=== PATIENT | male | born 1955 | race Caucasian/White ===

== ENCOUNTER 2016-12-23 06:34 | Observation (INO) | payer OTHER ==
[~2016-12-23] VITALS: Ht 181.6 cm; Wt 93.0 kg
--- NOTE | 2016-12-23 08:16 | ED NURSING NOTES ---
Clinical Report - Nurses [facility] [address] [place] [address] 12/23/2016 6:35 Patient: JAEL ZAZUETA TRIAGE Triage time 06:37 Dec 23 2016. Acuity: LEVEL 2. Chief Complaint: CHEST PAIN and PALPITATIONS. 06:44 12/23/16. RALF COMA SCORE: Ralf Coma Scale: 15- eyes open spontaneously (4); best verbal response- oriented x 4 (5); best motor response- obeys commands (6). --06:44 Dora Elliott R.N. 06:39 12/23/16. BP: 173/118. HR: 197. RR: 20. O2 saturation: 100%. Temp: 98.7 F. Pain level now: 0/10. --06:44 Dora Elliott R.N. Weight: 95.2 kg stated. Height/Length: 71 inches Per Patient. BMI: 29.3. --06:36 Dora Elliott R.N. Medications Effexor XR Oral. --06:40 Dora Elliott R.N. PROzac Oral. --06:40 Dora Elliott R.N. Medication/allergy information source: the patient. --06:44 Dora Elliott R.N. History Arrived by private vehicle. Historian: patient. Accompanied by family. This started just prior to arrival. ( States was walking up the steps at work (05:30) this am , he got to the top and felt like his heart was "jumping and racing" He had some dyspnea with this. No other symptoms.). ( recent headaches). No fever, weakness, cough, difficulty breathing or skin rash. Denies muscle aches. Treatment MENTAL RETARDATION NURSE: None. SOCIAL HX: Never smoker. Regular alcohol use; consumes four beers a day. No drug use. No infectious disease exposure. ABUSE ASSESSMENT: No report of abuse. SELF HARM ASSESSMENT: A self harm assessment was performed. The patient answered "no" to the question "Have you recently felt down, depressed, or hopeless?", "Have you noticed less interest or pleasure in doing things?", "Do you have thoughts of harming or killing yourself?", "Are you here because you tried to hurt yourself?", "Have you ever tried to hurt yourself before today?", "Have you recently had thoughts about harming or killing others?" and "Do you have any dangerous items in your possession?". NUTRITIONAL RISK ASSESSMENT: The nutritional risk assessment revealed no deficiencies. FUNCTIONAL ASSESSMENT: Functional assessment: no impairments noted. LEARNING NEEDS ASSESSMENT: The learning needs assessment revealed no barriers. SKIN INTEGRITY ASSESSMENT: Skin integrity risk assessment completed. No skin integrity risk identified. --06:44 Dora Elliott R.N. PROBLEMS: Depression. --06:40 Dora Elliott R.N. ADDITIONAL SURGERIES: Tonsillectomy. --06:40 Dora Elliott R.N. Interventions ID band on patient. --06:44 Dora Elliott R.N. PHYSICAL ASSESSMENT 06:42 12/23/16. Ambulatory to room. GENERAL / NEURO / PSYCH: Alert. Oriented X 4. Appears anxious. HEENT: Pupils equal, round and reactive to light. No facial asymmetry noted. Mucous membranes are pink. RESPIRATORY: Breath sounds within normal limits. GI / : Abdomen soft. SKIN: Skin intact. Skin is warm and dry. Normal skin turgor. --06:47 Dora Elliott R.N. NURSING PROGRESS NOTES 06:37 12/23/16. Cardiac rhythm: atrial fibrillation with rapid ventricular response. The initial plan of care for this patient includes an assessment with efforts to address the patient's anxiety. This plan of care was discussed with the patient and family. Oxygen administered at 2 liters. vehicle monitor technician, pulse oximeter and NIBP monitor placed on patient; hospital monitor- Lead II; monitor alarms on. Patient gowned. Patient identifiers checked. Call light placed in reach. Side rails up x 2. Bed placed in lowest position. Patient ready for evaluation. --06:47 Dora Elliott R.NHyacinth 06:42 12/23/2016 Site #1 started via IV in the left antecubital space with an 18g angiocath, with aseptic technique and good blood return; one attempt. Blood drawn: rainbow set. Labeled in the presence of the patient and sent to the lab. Saline lock flushed with 10 mL saline. --06:47 Dora Elliott R.N. 06:48 12/23/16. BP: 148/89. HR: 190. RR: 20. O2 saturation: 100%. Pain level now 0/10. --06:55 Dora Elliott R.N. 06:48 12/23/16. Cardiac rhythm: atrial fibrillation with rapid ventricular response. --06:55 Dora Elliott R.N. 06:50 12/23/2016 Site #2 started via IV in the left forearm with an 18g angiocath, with aseptic technique and good blood return; one attempt. Blood drawn: rainbow set. Labeled in the presence of the patient and sent to the lab. Saline lock flushed with 10 mL saline. --06:54 Dora Elliott R.N. 06:56 12/23/16. BP: 137/83. HR: 115. RR: 18. O2 saturation: 100%. Pain level now 0/10. --06:56 Dora Elliott R.N. 06:50 12/23/2016 Cardizem IVP 20 mg given over 2 minute(s) via site #1. Allergies verified and confirmed 5 rights. IV patency established. IV site checked: no pain, redness, or swelling. IV flushed thoroughly pre- and post-medication administration. IVP given by RN. --07:03 Dora Elliott R.NHyacinth 06:56 12/23/16. Cardiac rhythm: sinus tachycardia. --06:56 Dora Elliott R.NHyacinth 07:02 12/23/2016 Started bag #1 1000 mL IV Fluids IV NS (Saline); at 125 mL/hr over 8 hour(s) via site #2 via IV pump. Allergies verified and confirmed 5 rights. IV patency established. IV site checked: no pain, redness, or swelling. IV flushed thoroughly pre- and post-medication administration. --07:02 Dora Elliott R.N. EKG time: (0642). EKG was ordered, performed by a tech and shown to the ED physician. --07:06 Dane Kunz, ER Call Center Representative EKG time: (0656). EKG was ordered, performed by a tech and shown to the ED physician. POST MEDS. --07:07 Dane Kunz, ER Call Center Representative 07:12 12/23/2016 Diltiazem PO 30 mg given. Allergies verified and confirmed 5 rights. --07:13 Kayla Gaxiola R.N. 07:17 12/23/16. Care transferred and report received (Dora). ( Patient has no pain at this time and says he doesn't need anything at this time). --07:17 Kayla Gaxiola R.N. 07:15 12/23/16. BP: 148/97. HR: 101. RR: 18. O2 saturation: 99% on room air. Temp: 98.6 F (oral). Pain level now: 0/10. --07:17 Kayla Gaxiola R.N. 08:30. Patient ID band checked for patient name and birthdate: patient confirmed urine collected with return of yellow-colored clear urine; odor is normal; sample sent to lab for urinalysis and culture. Specimen labeled in the presence of the patient. --08:42 Samira Gaxiola 09:08 12/23/16. --09:08 Kayla Gaxiola R.N. 09:06 12/23/16. BP: 157/105 (regular adult cuff) taken on the right arm, while lying. HR: 88. RR: 18 (regular). O2 saturation: 100% on room air. Temp: 98.2 F (oral). Pain level now: 0/10. --09:08 Kayla Gaxiola R.N. 09:59 12/23/16. --09:59 Kayla Gaxiola R.N. 09:57 12/23/16. BP: 158/86 (regular adult cuff) taken on the right arm, while sitting. HR: 86. RR: 18 (regular). O2 saturation: 100% on room air. Temp: 97.7 F (oral). Pain level now: 0/10. --09:59 Kayla Gaxiola R.N. Locked/Released at 12/27/2016 8:56 by Kimber Fox R.N.
--- NOTE | 2016-12-23 08:16 | ED CLINICAL REPORT ---
Clinical Report - Physicians/Mid Levels [facility] [address] [place] [address] 12/23/2016 6:35 Patient: JAEL ZAZUETA Time Seen: 06:38. Arrived- By private vehicle. Historian- patient. HISTORY OF PRESENT ILLNESS Chief Complaint: PALPITATIONS. It is described as a fast heart beat and an irregular heart beat. This started just prior to arrival and is still present. Onset during exertion. History of caffeine use prior to onset. It was abrupt in onset and has been constant. The patient has had moderate, pressure-like central chest pain. No radiation. He has had mild difficulty breathing and dizziness. Similar symptoms previously: Several times. ( he has not been evaluated for that says that he experiences palpitations at different times). REVIEW OF SYSTEMS No chills, fever, sweats, calf pain or cough. No pedal edema, abdominal pain, constipation, diarrhea or nausea. No urinary problems. All systems otherwise negative, except as recorded above. PAST HISTORY PCP - Cory. Problems: Depression. Additional Surgeries: Tonsillectomy. Medications: PROzac Oral. Effexor XR Oral. Allergies: Sulfa Antibiotics. SOCIAL HISTORY Never smoker. Regular alcohol use; consumes four beers a day. No drug use. Is a local resident. He lives with spouse. Has good social support. FAMILY HISTORY Stroke in first-degree relative (father). maternal grandmother with thyroid disease. ADDITIONAL NOTES The nursing notes have been reviewed. PHYSICAL EXAM Vital Signs: 12/23/2016 06:39 BP: 173/118. HR: 197. RR: 20. O2 saturation: 100%. Temp: 98.7 F. Pain level now: 0/10. Appearance: Alert. Eyes: Pupils equal, round and reactive to light. ENT: Pharynx normal. Neck: Normal inspection. Neck supple. No JVD. CVS: Tachycardia. Respiratory: No respiratory distress. Breath sounds normal. Abdomen: Soft and nontender. Bowel sounds normal. No organomegaly. No mass. Back: Normal external inspection. No CVA tenderness. Skin: Skin warm and dry. Normal skin color. Normal skin turgor. Extremities: Extremities exhibit normal ROM. No calf tenderness. No lower extremity edema. LABS, X-RAYS, AND EKG EKG: EKG time: (06:42). Rate: 193. Irregular narrow-complex tachycardia. Possible atrial fibrillation. ST depression. Prior EKG unavailable. The study has been independently viewed by me. EKG #2: EKG time: (06:56). Normal sinus rhythm. Rate: 114. Tachycardia. Changes present when compared to prior EKG. The study has been independently viewed by me. Chest X-ray: No acute disease. The X-rays were independently viewed by me. Laboratory Tests: UA-Culture if indicated: (ARIK: 12/23/2016 07:50) ( [facility] 12/23/2016 07:57) IP Test Result Flag Units (Reference) URINE COLOR YELLOW URINE APPEARANCE CLEAR URINE GLUCOSE NEGATIVE (NEGATIVE) URINE BILIRUBIN NEGATIVE (NEGATIVE) URINE KETONE NEGATIVE (NEGATIVE) URINE SPECIFIC GRAVITY 1.010 (1.010-1.030) URINE PH 6.0 (5.0-8.0) URINE PROTEIN NEGATIVE (NEGATIVE) URINE UROBILINOGEN 0.2 EU/dL (0.2-1.0) URINE NITRITE NEGATIVE (NEGATIVE) URINE BLOOD NEGATIVE (NEGATIVE) URINE LEUK ESTERASE NEGATIVE (NEGATIVE) CBC w Diff: (ARIK: 12/23/2016 06:48) ( [facility] 12/23/2016 07:05) Final results Test Result Flag Units (Reference) WHITE BLOOD COUNT 5.7 K/uL (4.5-11.5) RED BLOOD COUNT 4.66 M/uL (4.50-5.90) HEMOGLOBIN 14.9 gm/dL (13.5-17.5) HEMATOCRIT 44.4 % (41.0-53.0) MEAN CELL VOLUME 95 fL (80-100) MEAN CORPUSCULAR HGB 32 pg (26-34) MEAN CORPUSCULAR HGB CONC 34 g/dL (31-37) RED CELL DISTRIBUTION WIDTH 13.7 % (11.6-14.8) PLATELET COUNT 242 K/uL (150-400) NEUTROPHIL % 57.4 % (50-75) LYMPH % 30.0 % (25-40) MONO % 8.7 % (3-14) EOSINOPHIL % 3.3 % (0-4) BASOPHIL % 0.6 % (0-2) PT with INR: (ARIK: 12/23/2016 06:48) ( [facility] 12/23/2016 07:22) Final results Test Result Flag Units (Reference) INR 0.9 (0.8-1.2) Low Intensity Therapy: INR 1.5-2.0 PT range 18.5-23.1Mod.Intensity Therapy: INR 2.0-3.0 PT range 23.1-31.5High Intensity Therapy: INR 2.5-3.5 PT range 27.4-35.5High Intensity Therapy 2: INR 3.0-4.0 PT range 31.5-39.3 APTT 32 SECONDS (24-34) D-DIMER QUANTITATIVE 0.30 ug/mLFEU (0.27-0.52) The primary value of this quantitative assay relates toits negative predictive value (i.e. exclusion) of pulmonaryembolism/deep vein thrombosis/DIC.Elevated levels of d-dimer may also occur with:, age, cancer, inflammation, liver disease,post-op, infection, hematoma, coronary disease, peripheralarteriopathy, bleeding disorders and thrombolytic treatment.Results should be correlated with other clinical andradiological data.Testing Methodology: Latex Immunoassay BNP: (ARIK: 12/23/2016 06:48) ( [facility] 12/23/2016 07:26) Final results Test Result Flag Units (Reference) B-TYPE NATRIURETIC PEPTIDE 19.3 pg/ml (5-100) CMP: (ARIK: 12/23/2016 06:48) ( [facility] 12/23/2016 07:30) Final results Test Result Flag Units (Reference) GLUCOSE 107 mg/dL (70-110) BUN 14 mg/dL (7-18) CREATININE 0.9 mg/dL (0.6-1.3) Estimated GFR >60 mL/min Estimated GFR- >60 mL/min Note: Persistent reduction over 3 months in eGFR<60 mL/min/1.73 m2 defines CKD. Patients with eGFR values>=60 mL/min/1.73 m2 may also have CKD if evidence ofpersistent proteinuria. Additional information may be foundat www.kidney.org. SODIUM 141 mmol/L (136-145) POTASSIUM 4.0 mmol/L (3.5-5.1) CHLORIDE 103 mmol/L (98-107) CARBON DIOXIDE 28 mmol/L (21-32) CALCIUM 9.5 mg/dL (8.5-10.1) TOTAL PROTEIN 8.2 g/dL (6.4-8.2) ALBUMIN 4.2 g/dL (3.3-5.0) BILIRUBIN, TOTAL 0.3 mg/dL (0.0-1.0) ALKALINE PHOSPHATASE 81 U/L (46-116) AST (SGOT) 17 U/L (15-37) ALT (SGPT) 36 U/L (12-78) LIPASE 187 U/L (73-393) AMYLASE 73 U/L (25-115) CPK 98 U/L (24-260) TROPONIN I <0.05 ng/mL (0.00-1.5) TROPONIN REFERENCE RANGE:<0.1 NEGATIVE0.1-1.5 INDETERMINANT>1.5 POSITIVE THYROID STIMULATING HORMONE 2.230 uIU/mL (0.30-3.74) . PROGRESS AND PROCEDURES Course of Care: Patient is stable. Discussed case with patient's primary care provider, (Cory). Reviewed test results and need for additional work-up. Agreed upon treatment plan, need for patient follow-up and decision to place in observation. Health care provider will see patient in hospital. Patient/family counseled. Old medical records ordered. Old records unavailable. Disposition orders written (in [employer]). Disposition: Admitted. Observation. CLINICAL IMPRESSION Chest pain. supraventricular tachycardia. (Electronically signed by Chalo Benjamin MD 12/23/2016 9:28)
--- NOTE | 2016-12-23 08:16 | ED ORDER SUMMARY ---
..... Patient: JAEL ZAZUETA OrderSheet [facility] VisitID: [id number] [address] [place], [place] [id number] 61y, M Registration Date/Time: 12/23/2016 ORDER SHEET Weight: 95.2 kg (stated) Allergies: Sulfa Antibiotics GENERAL ORDERS: Chest 1V Urgent (06:55 12/23/2016 Mary VALDEZ) (Ack 6:59 CHagerty ER [employer]) (7:01 [employer]ty [employer]) Rn Admissions (Continuous) (06:55 12/23/2016 Mary VALDEZ) (6:58 CHagjorge [employer]) CBC w Diff Urgent (06:56 12/23/2016 Mary VALDEZ) (6:58 CHagjorge [employer]) CMP Urgent (06:56 12/23/2016 Mary VALDEZ) (6:58 CHagjorge [employer]) PT with INR Urgent (06:56 12/23/2016 Mary VALDEZ) (6:58 CHagjorge [employer]) PTT Urgent (06:56 12/23/2016 Mary VALDEZ) (6:58 CHagjorge [employer]) Amylase Urgent (06:56 12/23/2016 Mary VALDEZ) (6:58 CHagjorge [employer]) Lipase Urgent (06:56 12/23/2016 Mary VALDEZ) (6:58 CHagjorge [employer]) CPK Urgent (06:56 12/23/2016 Mary VALDEZ) (6:58 CHagjorge [employer]) Troponin-I Urgent (06:56 12/23/2016 Mary VALDEZ) (6:58 CHagjorge [employer]) TSH Urgent (06:56 12/23/2016 Mary VALDEZ) (6:58 CHagjorge [employer]) BNP Urgent (06:56 12/23/2016 Mary VALDEZ) (6:58 CHagjorge [employer]) D-Dimer Urgent (06:56 12/23/2016 Mary VALDEZ) (6:58 CHagjorge [employer]) UA-Culture if indicated Urgent (06:56 12/23/2016 Mary VALDEZ) (Ack 6:59 CHagjorge [employer]) (7:51 ANGELAanders R.N.) Oxygen (2 L/min) (NC) (06:56 12/23/2016 Mary VALDEZ) (6:58 CHagerty [employer]) Pulse oximeter (06:56 12/23/2016 Mary VALDEZ) (6:58 CHagerty [employer]) EKG - ER Stat (06:56 12/23/2016 Mary VALDEZ) (6:58 CHagerty [employer]) EKG - ER Stat (06:56 12/23/2016 Mary VALDEZ) (Cancelled: Other6:57 CHagerty [employer]) EKG - ER Repeat Stat (06:58 12/23/2016 CHagerty [employer] written order Mary VALDEZ) (6:59 CHagerty [employer]) MEDICATION ORDERS: Diltiazem PO 30 mg (Do not crush or chew, NOW) (07:08 12/23/2016 Mary VALDEZ) (7:13 ANGELAanders R.N.) IV FLUIDS: Cardizem IV 20 mg (HIGH ALERT MEDICATION, NOW) (06:54 12/23/2016 EInderjanett R.N. verbal order read back to Mary VALDEZ) (7:03 EInderbitzen R.N.) IV NS : initial bolus none -, then 125 mL/hr for 4h (NOW); Urgent (06:55 12/23/2016 Mary VALDEZ) (7:02 EInderbitzen R.N.) ORDER SHEET NOTES: [Electronically signed by Chalo Benjamin MD (09:28 12/23/2016)] [Electronically signed by Kimber Fox R.N. (08:56 12/27/2016)] [Electronically locked/signed by Kimber Fox R.N. (08:56 12/27/2016)]
--- NOTE | 2016-12-23 08:16 | ED ORDER SUMMARY ---
..... Patient: JAEL ZAZUETA OrderSheet [facility] VisitID: [id number] [address] [place], [place] [id number] 61y, M Registration Date/Time: 12/23/2016 ORDER SHEET Weight: 95.2 kg (stated) Allergies: Sulfa Antibiotics GENERAL ORDERS: Chest 1V Urgent (06:55 12/23/2016 Mary VALDEZ) (Ack 6:59 CHagerty ER Facilities Manager) (7:01 CHagerty ER Facilities Manager) Cyber Legal Advisor (Continuous) (06:55 12/23/2016 Mary VALDEZ) (6:58 CHagjorge ER Facilities Manager) CBC w Diff Urgent (06:56 12/23/2016 Mary VALDEZ) (6:58 CHagjorge ER Facilities Manager) CMP Urgent (06:56 12/23/2016 Mary VALDEZ) (6:58 CHagjorge ER Facilities Manager) PT with INR Urgent (06:56 12/23/2016 Mary VALDEZ) (6:58 CHagjorge ER Facilities Manager) PTT Urgent (06:56 12/23/2016 Mary VALDEZ) (6:58 CHagjorge ER Facilities Manager) Amylase Urgent (06:56 12/23/2016 Mary VALDEZ) (6:58 CHagjorge ER Facilities Manager) Lipase Urgent (06:56 12/23/2016 Mary VALDEZ) (6:58 CHagjorge ER Facilities Manager) CPK Urgent (06:56 12/23/2016 Mary VALDEZ) (6:58 CHagjorge ER Facilities Manager) Troponin-I Urgent (06:56 12/23/2016 Mary VALDEZ) (6:58 CHagjorge ER Facilities Manager) TSH Urgent (06:56 12/23/2016 Mary VALDEZ) (6:58 CHagjorge ER Facilities Manager) BNP Urgent (06:56 12/23/2016 Mary VALDEZ) (6:58 CHagjorge ER Facilities Manager) D-Dimer Urgent (06:56 12/23/2016 Mary VALDEZ) (6:58 CHagjorge ER Facilities Manager) UA-Culture if indicated Urgent (06:56 12/23/2016 Mary VALDEZ) (Ack 6:59 CHagjorge ER Facilities Manager) (7:51 ANGELAanders R.N.) Oxygen (2 L/min) (NC) (06:56 12/23/2016 Mary VALDEZ) (6:58 CHagerty ER Facilities Manager) Pulse oximeter (06:56 12/23/2016 Mary VALDEZ) (6:58 CHagerty ER Facilities Manager) EKG - ER Stat (06:56 12/23/2016 Mary VALDEZ) (6:58 CHagerty ER Facilities Manager) EKG - ER Stat (06:56 12/23/2016 Mary VALDEZ) (Cancelled: Other6:57 CHagerty ER Facilities Manager) EKG - ER Repeat Stat (06:58 12/23/2016 CHagerty ER Facilities Manager written order Mary VALDEZ) (6:59 CHagerty ER Facilities Manager) MEDICATION ORDERS: Diltiazem PO 30 mg (Do not crush or chew, NOW) (07:08 12/23/2016 Mary VALDEZ) (7:13 ANGELAanders R.N.) IV FLUIDS: Cardizem IV 20 mg (HIGH ALERT MEDICATION, NOW) (06:54 12/23/2016 EInderjanett R.N. verbal order read back to Mary VALDEZ) (7:03 EInderbitzen R.N.) IV NS : initial bolus none -, then 125 mL/hr for 4h (NOW); Urgent (06:55 12/23/2016 Mary VALDEZ) (7:02 EInderbitzen R.N.) ORDER SHEET NOTES: [Electronically signed by Chalo Benjamin MD (09:28 12/23/2016)] [Electronically signed by Kimber Fox R.N. (08:56 12/27/2016)] [Electronically locked/signed by Kimber Fox R.N. (08:56 12/27/2016)]
--- NOTE | 2016-12-23 08:16 | ED NURSING NOTES ---
Clinical Report - Nurses [facility] [address] [place] [address] 12/23/2016 6:35 Patient: JAEL ZAZUETA TRIAGE Triage time 06:37 Dec 23 2016. Acuity: LEVEL 2. Chief Complaint: CHEST PAIN and PALPITATIONS. 06:44 12/23/16. RALF COMA SCORE: Ralf Coma Scale: 15- eyes open spontaneously (4); best verbal response- oriented x 4 (5); best motor response- obeys commands (6). --06:44 Dora Elliott R.N. 06:39 12/23/16. BP: 173/118. HR: 197. RR: 20. O2 saturation: 100%. Temp: 98.7 F. Pain level now: 0/10. --06:44 Dora Elliott R.N. Weight: 95.2 kg stated. Height/Length: 71 inches Per Patient. BMI: 29.3. --06:36 Dora Elliott R.N. Medications Effexor XR Oral. --06:40 Dora Elliott R.N. PROzac Oral. --06:40 Dora Elliott R.N. Medication/allergy information source: the patient. --06:44 Dora Elliott R.N. History Arrived by private vehicle. Historian: patient. Accompanied by family. This started just prior to arrival. ( States was walking up the steps at work (05:30) this am , he got to the top and felt like his heart was "jumping and racing" He had some dyspnea with this. No other symptoms.). ( recent headaches). No fever, weakness, cough, difficulty breathing or skin rash. Denies muscle aches. 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 SOCIAL HX: Never smoker. Regular alcohol use; consumes four beers a day. No drug use. No infectious disease exposure. ABUSE ASSESSMENT: No report of abuse. SELF HARM ASSESSMENT: A self harm assessment was performed. The patient answered "no" to the question "Have you recently felt down, depressed, or hopeless?", "Have you noticed less interest or pleasure in doing things?", "Do you have thoughts of harming or killing yourself?", "Are you here because you tried to hurt yourself?", "Have you ever tried to hurt yourself before today?", "Have you recently had thoughts about harming or killing others?" and "Do you have any dangerous items in your possession?". NUTRITIONAL RISK ASSESSMENT: The nutritional risk assessment revealed no deficiencies. FUNCTIONAL ASSESSMENT: Functional assessment: no impairments noted. LEARNING NEEDS ASSESSMENT: The learning needs assessment revealed no barriers. SKIN INTEGRITY ASSESSMENT: Skin integrity risk assessment completed. No skin integrity risk identified. --06:44 Dora Elliott R.N. PROBLEMS: Depression. --06:40 Dora Elliott R.N. ADDITIONAL SURGERIES: Tonsillectomy. --06:40 Dora Elliott R.N. Interventions ID band on patient. --06:44 Dora Elliott R.N. PHYSICAL ASSESSMENT 06:42 12/23/16. Ambulatory to room. GENERAL / NEURO / PSYCH: Alert. Oriented X 4. Appears anxious. HEENT: Pupils equal, round and reactive to light. No facial asymmetry noted. Mucous membranes are pink. RESPIRATORY: Breath sounds within normal limits. GI / : Abdomen soft. SKIN: Skin intact. Skin is warm and dry. Normal skin turgor. --06:47 Dora Elliott R.N. NURSING PROGRESS NOTES 06:37 12/23/16. Cardiac rhythm: atrial fibrillation with rapid ventricular response. The initial plan of care for this patient includes an assessment with efforts to address the patient's anxiety. This plan of care was discussed with the patient and family. Oxygen administered at 2 liters. securities consultant, pulse oximeter and NIBP monitor placed on patient; sound assistant- Lead II; monitor alarms on. Patient gowned. Patient identifiers checked. Call light placed in reach. Side rails up x 2. Bed placed in lowest position. Patient ready for evaluation. --06:47 Dora Elliott R.NHyacinth 06:42 12/23/2016 Site #1 started via IV in the left antecubital space with an 18g angiocath, with aseptic technique and good blood return; one attempt. Blood drawn: rainbow set. Labeled in the presence of the patient and sent to the lab. Saline lock flushed with 10 mL saline. --06:47 Dora Elliott R.N. 06:48 12/23/16. BP: 148/89. HR: 190. RR: 20. O2 saturation: 100%. Pain level now 0/10. --06:55 Dora Elliott R.N. 06:48 12/23/16. Cardiac rhythm: atrial fibrillation with rapid ventricular response. --06:55 Dora Elliott R.N. 06:50 12/23/2016 Site #2 started via IV in the left forearm with an 18g angiocath, with aseptic technique and good blood return; one attempt. Blood drawn: rainbow set. Labeled in the presence of the patient and sent to the lab. Saline lock flushed with 10 mL saline. --06:54 Dora Elliott R.N. 06:56 12/23/16. BP: 137/83. HR: 115. RR: 18. O2 saturation: 100%. Pain level now 0/10. --06:56 Dora Elliott R.N. 06:50 12/23/2016 Cardizem IVP 20 mg given over 2 minute(s) via site #1. Allergies verified and confirmed 5 rights. IV patency established. IV site checked: no pain, redness, or swelling. IV flushed thoroughly pre- and post-medication administration. IVP given by RN. --07:03 Dora Elliott R.NHyacinth 06:56 12/23/16. Cardiac rhythm: sinus tachycardia. --06:56 Dora Elliott R.NHyacinth 07:02 12/23/2016 Started bag #1 1000 mL IV Fluids IV NS (Saline); at 125 mL/hr over 8 hour(s) via site #2 via IV pump. Allergies verified and confirmed 5 rights. IV patency established. IV site checked: no pain, redness, or swelling. IV flushed thoroughly pre- and post-medication administration. --07:02 Dora Elliott R.N. EKG time: (0642). EKG was ordered, performed by a tech and shown to the ED physician. --07:06 Dane Kunz, ER Chemical Test Engineer EKG time: (0656). EKG was ordered, performed by a tech and shown to the ED physician. POST MEDS. --07:07 Dane Kunz, ER Chemical Test Engineer 07:12 12/23/2016 Diltiazem PO 30 mg given. Allergies verified and confirmed 5 rights. --07:13 Kayla Gaxiola R.N. 07:17 12/23/16. Care transferred and report received (Dora). ( Patient has no pain at this time and says he doesn't need anything at this time). --07:17 Kayla Gaxiola R.N. 07:15 12/23/16. BP: 148/97. HR: 101. RR: 18. O2 saturation: 99% on room air. Temp: 98.6 F (oral). Pain level now: 0/10. --07:17 Kayla Gaxiola R.N. 08:30. Patient ID band checked for patient name and birthdate: patient confirmed urine collected with return of yellow-colored clear urine; odor is normal; sample sent to lab for urinalysis and culture. Specimen labeled in the presence of the patient. --08:42 Samira Gaxiola 09:08 12/23/16. --09:08 Kayla Gaxiola R.N. 09:06 12/23/16. BP: 157/105 (regular adult cuff) taken on the right arm, while lying. HR: 88. RR: 18 (regular). O2 saturation: 100% on room air. Temp: 98.2 F (oral). Pain level now: 0/10. --09:08 Kayla Gaxiola R.N. 09:59 12/23/16. --09:59 Kayla Gaxiola R.N. 09:57 12/23/16. BP: 158/86 (regular adult cuff) taken on the right arm, while sitting. HR: 86. RR: 18 (regular). O2 saturation: 100% on room air. Temp: 97.7 F (oral). Pain level now: 0/10. --09:59 Kayla Gaxiola R.N. Locked/Released at 12/27/2016 8:56 by Kimber Fox R.N.
--- NOTE | 2016-12-23 08:19 | DIAGNOSTIC IMAGING REPORT ---
PROCEDURE: XR CHEST 1 VIEW INDICATION: CHEST PAIN TECHNIQUE: Single view chest. 07:02 hours COMPARISON: None FINDINGS: Normal cardiomediastinal contour and central vessels. Clear lungs without consolidation, effusion, or pneumothorax. Intact osseous structures. IMPRESSION: 1. Normal single view chest.
[2016-12-23 10:52] VITALS: BP 159/85
--- NOTE | 2016-12-23 11:06 | HISTORY AND PHYSICAL ---
ADMITTED: 12/23/2016 CHIEF COMPLAINT: Palpitations. HISTORY OF PRESENT ILLNESS: A 61-year-old male presents with racing irregular heartbeat. He notes it started when he went to work, he walked up about 30 steps and began to have palpitations. The palpitations were associated with pain in the left upper arm on the medial aspect of the arm, chest tightness, shortness of breath and feeling lightheaded. He denied nausea, vomiting, or sweats. He has had palpitations intermittently in the past, but usually lasting just a few seconds and resolving spontaneously. These ones did not improve. He discussed them with coworkers after walking a distance of about a block to get his work location. He noted during that walk, he felt short of breath. Coworkers encouraged him to go to the emergency room. He went back to his car feeling short of breath and needing to stop to rest on the way. He then drove home and his brought him to the emergency room. On presentation in the emergency department, he was feeling improved and was surprised to find his heart was still racing on the monitor. MEDICAL/SURGICAL HISTORY: Past medical history remarkable for depression, BPH, allergic rhinitis. The patient also has history of hyperlipidemia, GERD, sciatica, eczema , tinea versicolor. Surgeries: Tonsillectomy and adenoidectomy in about 1965. Left arm fracture with closed reduction 1965. The patient has also had colonoscopy in 2006 due to bleeding and vasectomy in 2006. MEDICATIONS: 1. Flomax 0.4 mg 1 p.o. daily. 2. Selsun Blue shampoo to scalp daily. 3. Clobetasol to rash b.i.d. 4. Prozac 20 mg p.o. daily. 5. Effexor 75 mg p.o. daily. 6. Triamcinolone acetonide 0.5% ointment to rash b.i.d. p.r.n. ALLERGIES: 1. SULFA DRUGS. SOCIAL HISTORY: male, high school graduate. He lives in his own home. 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 Habits: Smoking: None. Alcohol: Positive with 2-4 drinks per day. Drug use: None. FAMILY HISTORY: Father had cancer of unknown type. Mother from ALS. One sibling is healthy. Children are healthy. REVIEW OF SYSTEMS: GENERAL: Positive for fatigue. Negative for pain, fever, weakness or weight change. SKIN: Positive for rashes and dryness. EYES: Positive for blurred vision and corrective lenses. Negative for pain, tearing or redness. EARS: Positive for ringing, negative for drainage, pain or hearing loss. NOSE: Positive for discharge. Negative for pain or current infection. The patient had an infection 2 weeks ago. MOUTH: Negative for dental pain, sores or gum soreness or sore throat. LUNGS: Positive for shortness of breath and phlegm production. Negative for cough, pneumonia, wheezing, or asthma. CARDIAC: See above. URINARY: Positive for frequent urination, nocturia, and slow stream. Negative for hematuria, pyuria, or incontinence. STOMACH: Positive for heartburn. Negative for nausea, vomiting, diarrhea, constipation, or abdominal pain. Review of systems is also positive for muscle cramps, backache, headaches, and depression. PHYSICAL EXAMINATION: GENERAL: Well-developed, well-nourished male in no acute distress. VITAL SIGNS: Blood pressure 173/118, heart rate 197, respirations 20, SaO2 100%, temperature 98.7. HEENT: Clear. NECK: Supple without adenopathy or thyromegaly. CHEST: Clear to auscultation and percussion. HEART: Regular rate and rhythm at the time of my evaluation with no murmur. No JVD is noted. ABDOMEN: Positive bowel sounds. Soft, nontender, without hepatosplenomegaly or masses. BACK: Straight without CVA tenderness. EXTREMITIES: Without cyanosis, clubbing, or edema. NEUROLOGIC: Intact and symmetric. SKIN: Unremarkable. GENITAL AND RECTAL: Deferred. LAB/IMAGING: Urinalysis is clear. WBC 5.7, hemoglobin 14.9, platelets 242. INR 0.9. D-dimer 0.30. BNP 19.3, glucose 107, BUN 14, creatinine 0.9, sodium 141, potassium 4.0, chloride 103, total protein 8.2, total bilirubin 0.3, alkaline phosphatase 81, AST 17, ALT 36, lipase 187, amylase 73. CPK 98, troponin less than 0.05, TSH 2.23. Chest x-ray is clear. EKG is obtained showing atrial fibrillation with rapid ventricular response at a rate of 130. Repeat EKG after IV diltiazem shows sinus rhythm with a rate of 114. No acute ST changes are noted. IMPRESSION: 1. Supraventricular tachycardia, probable atrial fibrillation with rapid ventricular response. 2. Chest pain, rule out myocardial infarction. 3. History of hyperlipidemia. 4. History of benign prostatic hypertrophy. 5. History of depression. PLAN: Admit to [facility] for rule out myocardial infarction protocol and control of rapid rate with diltiazem. The patient will be maintained on telemetry. Deep venous thrombosis prophylaxis will be undertaken. Aspirin was initiated. The plan was discussed with the patient and who were in agreement. FULL CODE STATUS is requested by patient and .
[2016-12-23 15:18] VITALS: BP 151/88
[2016-12-23] MEDS ORDERED: EFFEXOR25 MG PO (18:54)
[2016-12-23] MEDS ORDERED: PROZAC10 MG PO (18:56)
[2016-12-23] MEDS ORDERED: FLOMAX0.4 MG PO (18:56)
[2016-12-23 19:23] VITALS: BP 146/83
[2016-12-23 23:01] VITALS: BP 155/90
[2016-12-24 02:54] VITALS: BP 148/77
[2016-12-24 05:29] VITALS: BP 140/86
[2016-12-24] MEDS ORDERED: ATORVASTATIN CA10 MG PO (10:58)
[2016-12-24] MEDS ORDERED: DILT-XR240 MG PO (11:00)
[2016-12-24] MEDS ORDERED: ASPIRIN ADULT L81 M1 PO (11:02)
--- NOTE | 2016-12-24 11:03 | Provider's Discharge Care Plan ---
Problem, Goal, Plan Problem List 1. SVT (supraventricular tachycardia) Goals: Improve disease control Instructions: Take meds as directed 2. Chest pain Goals: Improved health/wellness Instructions: Take meds as directed
--- NOTE | 2016-12-27 08:57 | ED MED RECONCILIATION SUMMARY ---
Patient: JAEL ZAZUETA Medication Reconciliation Report [facility] VisitID: [id number] [address] [place] [address] 61y, M Registration Date/Time: 12/23/2016 Weight: 95.2 kg Height/Length: 71 in. BMI: 29.3 ALLERGIES: Sulfa Antibiotics The patient's Home Medications are listed below: THE FOLLOWING MEDICATIONS NEED TO BE RECONCILED: Effexor XR Oral PROzac Oral The source(s) of the original Home Medication information: patient The following Medications were given to the patient in the Emergency Department: IV NS IV Fluids bolus 0, then 125 mL/hr, administered: 12/23/2016 7:02:00 AM Cardizem [IVP] IVP 20 mg, administered: 12/23/2016 6:50:00 AM Diltiazem [PO] PO 30 mg, administered: 12/23/2016 7:12:00 AM The following Medications were prescribed to the patient: None.
--- NOTE | 2016-12-27 08:57 | ED MED RECONCILIATION SUMMARY ---
Patient: JAEL ZAZUETA Medication Reconciliation Report [facility] VisitID: [id number] [address] [place] [address] 61y, M Registration Date/Time: 12/23/2016 Weight: 95.2 kg Height/Length: 71 in. BMI: 29.3 ALLERGIES: Sulfa Antibiotics The patient's Home Medications are listed below: THE FOLLOWING MEDICATIONS NEED TO BE RECONCILED: Effexor XR Oral PROzac Oral The source(s) of the original Home Medication information: patient The following Medications were given to the patient in the Emergency Department: IV NS IV Fluids bolus 0, then 125 mL/hr, administered: 12/23/2016 7:02:00 AM Cardizem [IVP] IVP 20 mg, administered: 12/23/2016 6:50:00 AM Diltiazem [PO] PO 30 mg, administered: 12/23/2016 7:12:00 AM The following Medications were prescribed to the patient: None.
--- NOTE | 2016-12-27 08:57 | ED DISCHARGE INSTRUCTIONS ---
Patient: JAEL ZAZUETA General Instructions [facility] VisitID: [id number] [address] [place] [address] 61y, M Registration Date/Time: 12/23/2016 Chest pain. supraventricular tachycardia. (Electronically signed by Chalo Benjamin MD 12/23/2016 9:28)
--- NOTE | 2016-12-27 08:57 | ED MAR SUMMARY ---
..... Medication Administration Record [facility] [address] [address] Patient: JAEL ZAZUETA Visit ID: [id number] 61y, M Weight: 95.2 kg Height/Length: 71 in BMI: 29.3 ALLERGIES: Sulfa Antibiotics Given 06:50 12/23/2016 Dora Elliott R.N. Medication Administered: CARDIZEM [IVP], Dose: 20 mg IVP over 2 minute(s), Site: #1 left AC. Medication Ordered: Cardizem IV 20 mg (HIGH ALERT MEDICATION, NOW). Start 07:02 12/23/2016 Dora Elliott R.N. Medication Administered: IV NS (SALINE), Dose: IV Fluids over 8 hour(s), Rate: 125 mL/hr, Dispensed: 1000 mL bag, Site: #2 left forearm. Medication Ordered: IV NS : initial bolus none -, then 125 mL/hr for 4h (NOW); Urgent. Given 07:12 12/23/2016 Kayla Gaxoila R.N. Medication Administered: DILTIAZEM [PO], Dose: 30 mg PO. Medication Ordered: Diltiazem PO 30 mg (Do not crush or chew, NOW).
--- NOTE | 2016-12-27 08:57 | ED MAR SUMMARY ---
..... Medication Administration Record [facility] [address] [place] [address] Patient: JAEL ZAZUETA Visit ID: [id number] 61y, M Weight: 95.2 kg Height/Length: 71 in BMI: 29.3 ALLERGIES: Sulfa Antibiotics Given 06:50 12/23/2016 Dora Elliott R.N. Medication Administered: CARDIZEM [IVP], Dose: 20 mg IVP over 2 minute(s), Site: #1 left AC. Medication Ordered: Cardizem IV 20 mg (HIGH ALERT MEDICATION, NOW). Start 07:02 12/23/2016 Dora Elliott R.N. Medication Administered: IV NS (SALINE), Dose: IV Fluids over 8 hour(s), Rate: 125 mL/hr, Dispensed: 1000 mL bag, Site: #2 left forearm. Medication Ordered: IV NS : initial bolus none -, then 125 mL/hr for 4h (NOW); Urgent. Given 07:12 12/23/2016 Kayla Gaxiola R.N. Medication Administered: DILTIAZEM [PO], Dose: 30 mg PO. Medication Ordered: Diltiazem PO 30 mg (Do not crush or chew, NOW).
--- NOTE | 2016-12-27 08:57 | ED DISCHARGE INSTRUCTIONS ---
Patient: JALE ZAZUETA General Instructions [facility] VisitID: [id number] [address] [place] [address] 61y, M Registration Date/Time: 12/23/2016 Chest pain. supraventricular tachycardia. (Electronically signed by Chalo Benjamin MD 12/23/2016 9:28)
--- NOTE | 2016-12-31 14:03 | DISCHARGE SUMMARY ---
ADMIT DATE: 12/23/2016 DISCHARGE DATE: 12/24/2016 ADMISSION DIAGNOSES: 1. Supraventricular tachycardia, probably atrial fibrillation with rapid ventricular response. 2. Chest pain, rule out myocardial infarction. 3. History of hyperlipidemia. 4. History of benign prostatic hypertrophy. 5. History of depression. DISCHARGE DIAGNOSES: 1. Supraventricular tachycardia, probably atrial fibrillation with rapid ventricular response. 2. Chest pain, rule out myocardial infarction. 3. History of hyperlipidemia. 4. History of benign prostatic hypertrophy. 5. History of depression. BRIEF HISTORY: The patient presented to [facility] with racing heartbeat associated with discomfort in the left arm and chest tightness, shortness of breath and being lightheaded. He was found to have marked tachycardia, interpreted initially as atrial fibrillation with rapid response in the emergency department. He was admitted for management after emergency room treatment with IV diltiazem, which resulted in a sudden cessation of tachycardia. HOSPITAL COURSE: The patient was admitted. Serial cardiac enzymes and EKGs were performed to rule out myocardial infarction as cause of change in cardiac status. The patient was switched from IV diltiazem to oral diltiazem, which he tolerated well. He had no further tachycardia during his hospitalization and [place] was ruled out. DISPOSITION: Home. DISCHARGE MEDICATIONS/INSTRUCTIONS: Discharge medications: Atorvastatin 10 mg p.o. daily, diltiazem 240 mg p.o. daily (XR), aspirin 81 mg p.o. daily. The patient was additionally instructed to continue his prior medications including Venlafaxine XR 75 mg p.o. daily, Fluoxetine 20 mg p.o. daily and Tamsulosin 0.4 mg p.o. daily. Special instructions: Light activity x1 day, then okay to return to regular work. Cardiology consult recommended. The patient will be referred to cardiology in 2 weeks for further evaluation.
--- NOTE | 2016-12-31 14:03 | DISCHARGE SUMMARY ---
ADMIT DATE: 12/23/2016 DISCHARGE DATE: 12/24/2016 ADMISSION DIAGNOSES: 1. Supraventricular tachycardia, probably atrial fibrillation with rapid ventricular response. 2. Chest pain, rule out myocardial infarction. 3. History of hyperlipidemia. 4. History of benign prostatic hypertrophy. 5. History of depression. DISCHARGE DIAGNOSES: 1. Supraventricular tachycardia, probably atrial fibrillation with rapid ventricular response. 2. Chest pain, rule out myocardial infarction. 3. History of hyperlipidemia. 4. History of benign prostatic hypertrophy. 5. History of depression. BRIEF HISTORY: The patient presented to [facility] with racing heartbeat associated with discomfort in the left arm and chest tightness, shortness of breath and being lightheaded. He was found to have marked tachycardia, interpreted initially as atrial fibrillation with rapid response in the emergency department. He was admitted for management after emergency room treatment with IV diltiazem, which resulted in a sudden cessation of tachycardia. HOSPITAL COURSE: The patient was admitted. Serial cardiac enzymes and EKGs were performed to rule out myocardial infarction as cause of change in cardiac status. The patient was switched from IV diltiazem to oral diltiazem, which he tolerated well. He had no further tachycardia during his hospitalization and [place] was ruled out. DISPOSITION: Home. DISCHARGE MEDICATIONS/INSTRUCTIONS: Discharge medications: Atorvastatin 10 mg p.o. daily, diltiazem 240 mg p.o. daily (XR), aspirin 81 mg p.o. daily. The patient was additionally instructed to continue his prior medications including Venlafaxine XR 75 mg p.o. daily, Fluoxetine 20 mg p.o. daily and Tamsulosin 0.4 mg p.o. daily. Special instructions: Light activity x1 day, then okay to return to regular work. Cardiology consult recommended. The patient will be referred to cardiology in 2 weeks for further evaluation.
== END 2016-12-24 12:05 | disposition home or self-care (01) ==
LOC: ED SRH 06:34 → TRANS SRH 08:25 → CC SRH 11:00
PROVIDERS: ADMIT Family Medicine
DX: I47.1 Supraventricular tachycardia (principal); R07.9 Chest pain, unspecified; E78.5 Hyperlipidemia, unspecified; N40.1 Benign prostatic hyperplasia with lower urinary tract symptoms; R35.1 Nocturia; R35.0 Frequency of micturition; R39.12 Poor urinary stream; F32.9 Major depressive disorder, single episode, unspecified
CPT/HCPCS: 90004; 90074; 90100; 90616; 91320; 91556; 92132; 92235; 92530; 92610; 92720; 93140; 94001; 94060; 95059